=== PATIENT | female | born 1955 | race Caucasian/White ===

== ENCOUNTER → 2018-05-06 | Outpatient (CLI) | payer OTHER ==
--- NOTE | 2018-05-08 17:38 | MR ---
EXAMINATION TYPE: MR shoulder LT wo con DATE OF EXAM: 05/06/2018 COMPARISON: None HISTORY: 62-year-old female Left shoulder pain TECHNIQUE: Multiplanar, multisequence imaging of the left shoulder is performed without contrast. FINDINGS: Long head biceps tendon appears intact but shows moderate tenosynovial fluid along the bicipital groo ve. Heterogeneous signal of the subscapularis tendon with a small articular sided tear. The majority of t he tendon remains intact. Diffuse heterogeneity of both supraspinatus and infraspinatus tendons. Only thin, wispy, redundant appearing fibers of the supraspinatus tendon are identified. Underlying t ear is suspected measuring 2.2 cm AP at least 2.6 cm long to the level of the AC joint. This involves nearly the entire supraspinatus tendon. The remainder of the supraspinatus tendon exten ding into the anterior infraspinatus tendon shows extensive heterogeneity and likely prominent intras ubstance tearing. Small effusion within the subacromial/subdeltoid bursa. No atrophy of the rotator cuff musculature. Mild degenerative joint space narrowing with marginal spurring and capsular hypertrophy at the acromi oclavicular joint. No significant encroachment onto the underlying cuff. There is a moderately large joint effusion and degenerative blunting of the superior labrum. Mild diffuse thinning of superior humeral head articular cartilage. No Hill-Sachs deformity or os acromiale. No suspicious bone marrow replacement. IMPRESSION: 1. Severe diffuse rotator cuff tendinosis. Only thin wispy fibers of the supraspinatus tendon are vis ualized. Suspect a full-thickness to nearly full-thickness tear of the supraspinatus tendon (2.2 cm A P and 2.6 cm long). 2. The more posterior fibers of the supraspinatus tendon extending into the anterior infraspinatus te ndon shows prominent areas of intrasubstance tear at the footprint. Associated cystic bony changes at the greater tuberosity. 3. No rotator cuff muscle atrophy. 4. Moderate joint effusion and moderate long head biceps tenosynovitis.
== END | disposition home or self-care (01) ==
LOC: RADMRIMAIN 10:52
PROVIDERS: ATTEND Orthopaedic Surgery
DX: M65.811 Other synovitis and tenosynovitis, right shoulder (principal); M67.813 Other specified disorders of tendon, right shoulder; R93.7 Abnormal findings on diagnostic imaging of other parts of musculoskeletal system

== ENCOUNTER → 2018-05-23 | Outpatient (CLI) | payer OTHER ==
[2018-05-23 14:56] LABS: Basophils # (A) 0.1 k/uL (0-0.2); Basophils % (A) 1 %; Eosinophils # (A) 0.2 k/uL (0-0.7); Eosinophils % (A) 2 %; HCT 43.8 % (34.0-46.0); HGB 14.1 gm/dL (11.4-16.0); Lymphocytes # (A) 1.3 k/uL (1.0-4.8); Lymphocytes % (A) 20 %; MCH 29.4 pg (25.0-35.0); MCHC 32.1 g/dL (31.0-37.0); MCV 91.6 fL (80.0-100.0); Mean Platelet Volume 7.4; Monocytes # (A) 0.3 k/uL (0-1.0); Monocytes % (A) 5 %; Neutrophils # (A) 4.6 k/uL (1.3-7.7); Neutrophils % (A) 70 %; Platelet Count 201 k/uL (150-450); RBC 4.78 m/uL (3.80-5.40); RDW 13.7 % (11.5-15.5); WBC 6.6 k/uL (3.8-10.6)
[2018-05-23 15:11] LABS: Potassium 4.2 mmol/L (3.5-5.1)
== END | disposition home or self-care (01) ==
LOC: LABPAT 13:29
PROVIDERS: ATTEND Orthopaedic Surgery
DX: Z01.812 Encounter for preprocedural laboratory examination (principal); Z01.818 Encounter for other preprocedural examination; M75.42 Impingement syndrome of left shoulder
CPT/HCPCS: 36415; 80051; 85025; 93005

== ENCOUNTER 2018-06-10 06:11 | Day surgery (SDC) | payer OTHER ==
[2018-06-07 14:57] VITALS: BMI 20.3
--- NOTE | 2018-06-09 09:24 | HP ---
HISTORY AND PHYSICAL CHIEF COMPLAINT: Left shoulder pain. 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 She is having persistent pain with overhead use and at night. She has tried medications and rest without much relief. She notes the pain severely limits her function and activities. PAST MEDICAL HISTORY: Negative. PAST SURGICAL HISTORY: Negative. CURRENT MEDICATIONS: None. She denies drug allergies. FAMILY HISTORY: Significant for stroke. SOCIAL HISTORY: Negative for current tobacco or alcohol use. REVIEW OF SYSTEMS: A 16-point review of systems otherwise reviewed and is noncontributory. PHYSICAL EXAMINATION: On examination, the patient is approximately 5 foot 3, 115 pounds of mesomorphic habitus. HEENT exam is nonfocal. Neck is supple. On examination of her left shoulder, she is tender about the anterior subacromial space. She has moderate subacromial crepitus. Active range of motion forward elevation 145 degrees, external rotation with arm at the side 65 degrees, internal rotation to L1. Motor strength is 4+/5 for external rotation with arm at side, 4/5 for abduction. Impingement test is positive. Speed test is positive. Her distal neurovascular exam otherwise appears to be intact in the left upper extremity. MRI report left shoulder 05/06/2018 shows evidence of a supraspinatus tear along with significant bicipital tendinosis. IMPRESSION: 1. Acute left rotator cuff tear-symptomatic. 2. Left proximal bicipital tendinosis. RECOMMENDATIONS: I talked to the patient at length regarding her condition and treatment options. At this point, she is quite symptomatic after this acute injury. After thorough discussion, she opts to proceed with surgery. We will plan to proceed with arthroscopic evaluation and possible subacromial decompression, arthroscopic rotator cuff repair, and possible biceps tenotomy. Risks and benefits were discussed at length in layman's terms. MMODL / IJN: [id number] /
[~2018-06-10 06:11] MED LIST: DEXAMETHASONE SOD PHOSPHATE 10 MG/ML 1 ML VIAL IV ONE; LACTATED RINGERS 1,000 ML IV SCH; MIDAZOLAM (PF) 2 MG/2 ML VIAL IV PRN; ONDANSETRON 4 MG/2 ML VIAL IVP ONE; SCOPOLAMINE 1.5MG/72HR PATCH TRANSDERM ONE
[2018-06-10] MEDS ORDERED: MIDAZOLAM 2 MG/2 ML VIAL IV ONE (07:11)
[2018-06-10] MEDS ORDERED: fentaNYL (PF) 50 MCG/ML 2 ML AMP IV ONE (07:11)
[2018-06-10] MEDS ORDERED: SUCCINYLCHOLINE CHLORIDE 100 MG/5 ML SYR IV ONE (08:03)
[2018-06-10] MEDS ORDERED: fentaNYL (PF) 50 MCG/ML 2 ML AMP ONE (08:03)
[2018-06-10] MEDS ORDERED: LIDOCAINE 1% INJ 10MG/ML (20 ML MDV) ONE (08:03)
[2018-06-10] MEDS ORDERED: PROPOFOL 10 MG/ML 20 ML VIAL IV ONE (08:03)
[2018-06-10] MEDS ORDERED: ROPIVACAINE 5 MG/ML 30 ML VIAL ONE (08:03)
[2018-06-10] MEDS ORDERED: ceFAZolin 1,000 MG/50 ML BAG (PMX) IVPB ONE (08:05)
[2018-06-10] MEDS ORDERED: EPINEPHrine (PF) 1 ML in SODIUM CHLORIDE 0.9% IRRIGATIO 3,000 ML IRRIGATION ONE ×8 (08:05)
--- NOTE | 2018-06-10 09:21 | P.ONQ ---
Anesthesiology Proc Note - PNB - Peripheral Nerve Block Performed Left Interscalene Single Time Out Performed: Yes Procedure Start Time: 07:10 Procedure Stop Time: :21 Indication: Requested by physician Specifically requested for management of pain by : Alli Morel Sedation Type: Sedate with meaningful contact maintained Preparation: Sterile Prep Position: Supine (PUJANK) Needle Size: 50mm (2") Needle Gauge: 21 Technique: Ultrasound Injectate: 0.5% Ropivacaine (see comment for volume) (15 ml) Blood Aspirated: No Pain Paresthesia on Injection Noted: No Resistance on Injection: Normal Events: Uneventful and Well Tolerated
--- NOTE | 2018-06-10 09:33 | P.OP ---
Date of Procedure: 06/10/18 Preoperative Diagnosis: Symptomatic left rotator cuff tear Postoperative Diagnosis: 1 cm full-thickness rotator cuff tear, high-grade partial-thickness tear intra- articular portion proximal biceps Procedure(s) Performed: Left shoulder arthroscopic subacromial decompression/biceps tenotomy/rotator cuff repair Implants: Arthrex 5.5 mm swivel lock anchor 1 Anesthesia: PAULINE [facility] Surgeon: Alli Morel Estimated Blood Loss (ml): 10 Pathology: none sent Condition: stable Disposition: PACU Indications for Procedure: The patient's a 62-year-old female who presents after injuring her left shoulder previously with persistent pain despite conservative measures. A discussion of the risks and benefits of operative intervention versus continued conservative measures was made with patient. She opted to proceed with surgery. Operative risks to include infection, neurovascular injury, development of blood clots, possible tendon rerupture, possible postoperative stiffness, and possible need for subsequent procedures was discussed. Informed consent was obtained. Operative Findings: As below Description of Procedure: The patient was brought to the operating room, and after induction of general anesthesia was placed in a beachchair position. A preoperative interscalene block was placed for postoperative analgesia. I examined the left shoulder. There was no gross block to passive motion or gross glenohumeral instability. The left upper extremity was prepped and draped in normal fashion. The bony outlines the acromion, distal clavicle, and coracoid process were outlined with a skin marker. The glenohumeral joint was inflated with 50 mL of saline utilizing a spinal needle from posterior approach. A posterior portal was made through a 5 mm skin incision 1 cm medial and inferior to the posterior lateral border time. A blunt trocar was used to easily into the joint. Diagnostic arthroscopy was performed. An anterior portal was made just lateral to the coracoid process entering the joint above the subscapularis tendon. The subscapularis tendon appeared to be intact. Anterior labrum was intact. The inferior recess was inspected. The posterior labrum was intact. There was a high-grade partial-thickness tear of the long head of the biceps involving interarticular portion. Was elected to proceed with release at this point. This was released from the superior labrum with electrocautery and was allowed to retract to the bicipital groove. On inspection the rotator cuff a full- thickness tear involving the anterior aspect the supraspinatus was noted. The posterior portion of the rotator cuff appeared to be intact. A lateral portal was made 2 centimeters inferior to the anterior lateral border of the acromion. The rotator cuff was then mobilized with a traction suture. This was then easily brought back to the greater tuberosity. The soft tissue on the undersurface of the acromion was debrided with a motorized shaver and electrocautery clearly defining the anterior medial and lateral borders as well as the distal clavicle. An anterior inferior acromioplasty was performed with a motorized ankit starting anterolateral, then extending this posteriorly, then extending this medially. I converted to a flat acromion and this was verified in the posterior and lateral viewing portals. Attention was then paid towards the rotator cuff. A 1 cm minimally retracted tear involving the anterior aspect the supraspinatus was noted. This is easily mobilized. A #2 fiber tape was passed with a scorpion suture passer. This was secured laterally with a 5.5 mm swivel lock anchor. Good purchase was obtained. Final arthroscopic view showed adequate compression at the footprint. The arthroscope was then removed. The portals were closed with simple 3-0 nylon sutures. A sterile dressing was applied in addition to a sling. The patient was then awoken from general anesthesia and transferred to recovery room in good condition. Blood loss was estimated at 10 mL. No complications were incurred. Sponge and needle counts were correct in the case.
[2018-06-10] MEDS: HYDROmorphone 0.5 MG/0.5 ML SYRINGE IVP PRN ×2 (09:50→09:56)
[2018-06-10] MEDS ORDERED: KETOROLAC 30 MG/ML 1 ML VIAL IVP ONE (09:56)
[2018-06-10 09:57] VITALS: TEMP 97
[2018-06-10 10:39] VITALS: RESP 16
[2018-06-10] MEDS ORDERED: LACTATED RINGERS 1,000 ML IV ONE (10:42)
[2018-06-10] MEDS ORDERED: ONDANSETRON 4 MG/2 ML VIAL IVP ONE (12:03)
[2018-06-10 12:35] VITALS: BP 122/79; PULSE 78
== END 2018-06-10 13:04 | disposition home or self-care (01) ==
LOC: OR 06:11
PROVIDERS: ATTEND Orthopaedic Surgery
DX: S46.012A Strain of muscle(s) and tendon(s) of the rotator cuff of left shoulder, initial encounter (principal); S46.112A Strain of muscle, fascia and tendon of long head of biceps, left arm, initial encounter; X58.XXXA Exposure to other specified factors, initial encounter; R42 Dizziness and giddiness; G43.909 Migraine, unspecified, not intractable, without status migrainosus; Z79.899 Other long term (current) drug therapy
CPT/HCPCS: 64415; 29827; 29826; C1713; C1894; J2250; J1100; J2405; J0171; J2001; J3010; J1885; J0690; J2795; J0330; J2704; J1170

== ENCOUNTER 2018-12-15 15:35 | Inpatient (IN) | payer OTHER ==
[2018-12-15] MEDS ORDERED: MORPHINE SULFATE 2 MG/ML SYRINGE IVP STA (15:51)
[2018-12-15] MEDS ORDERED: RX INFO: IV CONTRAST WAS GIVEN 1 EACH MISC MISCELLANE PRN (15:51)
[2018-12-15] MEDS ORDERED: MORPHINE SULFATE 4 MG/ML SYRINGE IVP STA (16:06)
--- NOTE | 2018-12-15 16:11 | ED ---
Fall HPI - General Chief Complaint: Fall Stated Complaint: fall, lt knee injury Time Seen by Provider: 12/15/18 15:44 Source: patient Mode of arrival: wheelchair - History of Present Illness Initial Comments: 63yo female presenting today for chief complaint of left knee pain. Patient states she slipped on a dog toy, causing her to fall on her anterior left knee. Patient states that she saw small indentation. And then was unable to range at the knee. Patient states that there is severe pain anteriorly denies posterior pain denies numbness tingling loss sensation. Patient denies any head injury or injury to the neck or back. Patient denies any injury of the upper extremities. Patient was considered a fracture presents emergency department for further evaluation. Remaining ROS (-). Patient unable to ambulate on arrival with left knee. - Related Data Home Medications Medication Instructions Recorded Confirmed No Known Home Medications 12/15/18 12/15/18 Allergies Allergy/AdvReac Type Severity Reaction Status Date / Time No Known Allergies Allergy Verified 12/15/18 17:45 Review of Systems ROS Statement: Those systems with pertinent positive or pertinent negative responses have been documented in the HPI. ROS Other: All systems not noted in ROS Statement are negative. Past Medical History Past Medical History: No Reported History Additional Past Medical History / Comment(s): SEASONAL ALLERGIES, MIGRAINES, MENIERE'S DISEASE, History of Any Multi-Drug Resistant Organisms: None Reported Past Surgical History: Appendectomy, Section Additional Past Surgical History / Comment(s): COLONOSCOPY Past Anesthesia/Blood Transfusion Reactions: Motion Sickness, Postoperative Nausea & Vomiting (PONV) Past Psychological History: No Psychological Hx Reported Smoking Status: Never smoker Past Alcohol Use History: None Reported Past Drug Use History: None Reported - Past Family History Father Additional Family Medical History / Comment(s): AT AGE 91 FROM OLD AGE Mother Family Medical History: Congestive Heart Failure (CHF) Additional Family Medical History / Comment(s): AT AGE 77 General Exam - General Exam Comments Initial Comments: General: The patient is awake and alert, in no distress, and does not appear acutely ill. Eye: +3 mm pupils are equal, round and reactive to light, extra-ocular movements are intact. No nystagmus. There is normal conjunctiva bilaterally. No signs of icterus. Ears, nose, mouth and throat: There are moist mucous membranes and no oral lesions. No raccoon or alva sign Neck: The neck is supple, there is no tenderness or JVD. No midlines tenderness to palpation of the C-spine. Cardiovascular: There is a regular rate and rhythm. No murmur, rub or gallop is appreciated. Respiratory: Lungs are clear to auscultation, respirations are non-labored, breath sounds are equal. No wheezes, stridor, rales, or rhonchi. Musculoskeletal: Upon inspection of the knees bilaterally there is significant mild anterior soft tissue swelling with palpable defect of the quadriceps and patellar tendons. Patient is not able to extend at the knee. Refuses to range at the left knee. Strength 5/5 at the ankles b/l, no foot drop evident. Sensation intact proximal distal to injury site. DP pulses equal bilaterally 2+. Brachial, BP LA 119/68, Ankle BP LL 169/87 ROGER 1.42, Brachial BP RA 109/59, Ankle BP RL 139/87 ROGER 1.21. Neurological: A&O x 3. CN II-XII intact, There are no obvious motor or sensory deficits. Coordination appears grossly intact. Speech is normal. Skin: Skin is warm and dry and no rashes or lesions are noted. Psychiatric: Cooperative, appropriate mood & affect, normal judgment. Limitations: physical limitation Course Vital Signs 12/15/18 15:48 Temperature 97.9 F Pulse Rate 85 Respiratory 18 Rate Blood Pressure 138/66 O2 Sat by Pulse 100 Oximetry Medical Decision Making - Medical Decision Making 63-year-old female presented for chief complaint of left anterior knee pain. Patient is unsure if she dislocated it. She states there is a defect over the anterior knee. Patient denies any loss of sensation. Patient neurovascularly intact. Normal equal +2 DP b/l. ROGER WNL b/l. imaging studies revealed a comminuted left patella. Contacted chemical production machine operator orthopedic surgeon speaking with physician patient care assistant Fidel posada who recommended admission was surgical intervention scheduled for tomorrow. Patient is agreeable to admission. Pain controlled in ER. Repeat neurovascular exam upon transfer to floor within normal limits. Patient was evaluated by attending . Repeat NV exam upon transfer to floor WNL. Patient agreeable with plan and admission. - Lab Data Result diagrams: 12/15/18 16:12 12/15/18 16:12 Lab Results 12/15/18 12/15/18 Range/Units 16:12 16:12 WBC 6.3 (3.8-10.6) k/uL RBC 4.38 (3.80-5.40) m/uL Hgb 13.1 (11.4-16.0) gm/dL Hct 39.9 (34.0-46.0) % MCV 91.0 (80.0-100.0) fL MCH 29.8 (25.0-35.0) pg MCHC 32.8 (31.0-37.0) g/dL RDW 15.2 (11.5-15.5) % Plt Count 193 (150-450) k/uL Neutrophils % 71 % Lymphocytes % 17 % Monocytes % 4 % Eosinophils % 5 % Basophils % 1 % Neutrophils # 4.5 (1.3-7.7) k/uL Lymphocytes # 1.1 (1.0-4.8) k/uL Monocytes # 0.3 (0-1.0) k/uL Eosinophils # 0.3 (0-0.7) k/uL Basophils # 0.1 (0-0.2) k/uL Sodium 140 (137-145) mmol/L Potassium 3.9 (3.5-5.1) mmol/L Chloride 105 (98-107) mmol/L Carbon Dioxide 28 (22-30) mmol/L Anion Gap 7 mmol/L BUN 16 (7-17) mg/dL Creatinine 0.69 (0.52-1.04) mg/dL Est GFR (CKD-EPI)AfAm >90 (>60 ml/min/1.73 sqM) Est GFR (CKD-EPI)NonAf >90 (>60 ml/min/1.73 sqM) Glucose 92 (74-99) mg/dL Calcium 9.5 (8.4-10.2) mg/dL Disposition Clinical Impression: Comminuted fracture of left patella, Left knee pain, Fall Disposition: ADMITTED IP TO THIS [facility] Condition: Stable Is patient prescribed a controlled substance at d/c from ED?: No Time of Disposition: 17:19 Decision to Admit Reason: Admit from EC Decision Date: 12/15/18 Decision Time: 17:19
[2018-12-15 16:21] LABS: Basophils # (A) 0.1 k/uL (0-0.2); Basophils % (A) 1 %; Eosinophils # (A) 0.3 k/uL (0-0.7); Eosinophils % (A) 5 %; HCT 39.9 % (34.0-46.0); HGB 13.1 gm/dL (11.4-16.0); Lymphocytes # (A) 1.1 k/uL (1.0-4.8); Lymphocytes % (A) 17 %; MCH 29.8 pg (25.0-35.0); MCHC 32.8 g/dL (31.0-37.0); Monocytes # (A) 0.3 k/uL (0-1.0); Monocytes % (A) 4 %; Neutrophils # (A) 4.5 k/uL (1.3-7.7); Neutrophils % (A) 71 %; Platelet Count 193 k/uL (150-450); RBC 4.38 m/uL (3.80-5.40); RDW 15.2 % (11.5-15.5); WBC 6.3 k/uL (3.8-10.6)
--- NOTE | 2018-12-15 16:25 | XR ---
EXAMINATION TYPE: XR knee complete LT DATE OF EXAM: 12/15/2018 COMPARISON: NONE HISTORY: Left knee deformity after fall. TECHNIQUE: Lateral, frontal and oblique views of the left knee were obtained. FINDINGS: There is a complete fracture through the mid patella with retraction of the proximal patell ar fragment superiorly by approximately 5.0 cm. Comminuted components are seen surrounding the fractu re sites. Soft tissue swelling is seen anterior and medial to the left knee. No additional fracture o r dislocation is seen. IMPRESSION: Patellar fracture with displacement as described above.
[2018-12-15 16:29] LABS: African American GFR (CKD) >90 (>60 ml/min/1.73 sqM); Anion Gap 7 mmol/L; Blood Urea Nitrogen 16 mg/dL (7-17); Calcium 9.5 mg/dL (8.4-10.2); Carbon Dioxide 28 mmol/L (22-30); Chloride 105 mmol/L (98-107); Glucose 92 mg/dL (74-99); Non-African American GFR(CKD) >90 (>60 ml/min/1.73 sqM); Potassium 3.9 mmol/L (3.5-5.1); Sodium 140 mmol/L (137-145)
[2018-12-15] MEDS ORDERED: ONDANSETRON 4 MG/2 ML VIAL IVP PRN (17:11)
[2018-12-15] MEDS ORDERED: NALOXONE 0.4 MG/ML 1 ML VIAL IV PRN (17:11)
--- NOTE | 2018-12-15 17:44 | XR ---
EXAMINATION TYPE: XR knee limited LT DATE OF EXAM: 12/15/2018 COMPARISON: NONE HISTORY: Knee pain after falling TECHNIQUE: 2 views FINDINGS: There is a transverse fracture through the body of the patella. There is separation of the fragments 2 cm. There is no dislocation. Joint spaces are normal. IMPRESSION: Displaced patella fracture.
[2018-12-15] MEDS: SODIUM CHLORIDE 0.9% 1,000 ML IV SCH (20:38)
[2018-12-15] MEDS: MORPHINE SULFATE 4 MG/ML SYRINGE IV PRN (20:46)
[2018-12-16] MEDS: MORPHINE SULFATE 4 MG/ML SYRINGE IV PRN (05:55)
--- NOTE | 2018-12-16 07:48 | P.HPOR ---
History of Present Illness H&P Date: 12/16/18 Chief Complaint: Left knee patella fracture Patient is a 63-year-old female who presented to [facility] yesterday evening after sustaining a fall. Patient was in a dog kennel at her home, she tripped over a toy and fell directly onto her left knee. She had immediate pain and was unable to weight-bear. Upon arrival to the hospital, imaging and lab tests were done. Images demonstrated a displaced comminuted left patellar fracture. I was contacted by the emergency room staff regarding the patient, she was admitted under orthopedic care with plan for surgical intervention. Patient was evaluated today on the surgical floor, she is resting comfortably, she has family at bedside. The knee is fully extended at this time. She notes most discomfort when she attempts to move it. She denies any previous surgery involving the left knee. She has a previous left shoulder arthroscopy that was done with Dr. Morel in June 2018, she has no complaints with that at this time. Denies any chest pain, shortness of breath, fevers or chills, abdominal d iscomfort. Review of Systems Constitutional: Reports as per HPI Past Medical History Past Medical History: No Reported History Additional Past Medical History / Comment(s): SEASONAL ALLERGIES, MIGRAINES, MENIERE'S DISEASE, History of Any Multi-Drug Resistant Organisms: None Reported Past Surgical History: Appendectomy, Section Additional Past Surgical History / Comment(s): COLONOSCOPY Past Anesthesia/Blood Transfusion Reactions: Motion Sickness, Postoperative Nausea & Vomiting (PONV) Past Psychological History: No Psychological Hx Reported Smoking Status: Never smoker Past Alcohol Use History: None Reported Past Drug Use History: None Reported - Past Family History Father Additional Family Medical History / Comment(s): AT AGE 91 FROM OLD AGE Mother Family Medical History: Congestive Heart Failure (CHF) Additional Family Medical History / Comment(s): AT AGE 77 Medications and Allergies Home Medications Medication Instructions Recorded Confirmed Type No Known Home Medications 12/15/18 12/15/18 History Allergies Allergy/AdvReac Type Severity Reaction Status Date / Time No Known Allergies Allergy Verified 12/15/18 17:45 Physical Examination Left lower extremity: Obvious effusion present over the left knee, no areas of erythema or open lesions Patient's knee is extended at this time, she is unable to extend or flex Her sensory exam to light touch throughout the extremity is intact, dorsalis pedis pulse and posterior tibialis pulses 2+ Calf is soft, no tenderness with palpation Plantar flexion, dorsiflexion, EHL, FHL are intact Results - Labs Labs: H & H 12/15/18 Range/Units 16:12 Hgb 13.1 (11.4-16.0) gm/dL Hct 39.9 (34.0-46.0) % Result Diagrams: 12/15/18 16:12 12/15/18 16:12 - Diagnostic results Knee x-ray: report reviewed, image reviewed Assessment and Plan Plan: Imaging: Images of the left knee were obtained, they demonstrated a displaced and comminuted left patella fracture Assessment: 1. Displaced comminuted left patella fracture 2. Status post fall from standing Plan: I was able to discuss the case, including with physical exam findings and imaging studies with my attending physician Dr. Morel. Would like to proceed with a open reduction internal fixation procedure later this afternoon. Patient was made nothing by mouth last night. Risks and benefits of the procedure were discussed, along with procedure and recovery aspect. She has a good understanding would like to proceed. Obtain consent Nonweightbearing left lower extremity Pain control Nothing by mouth Plan for surgical intervention 12/16/2018 Further recommendations to follow Time with Patient: Less than 30
[2018-12-16] MEDS: SODIUM CHLORIDE 0.9% 1,000 ML IV SCH (09:45)
[2018-12-16] MEDS ORDERED: IV FLUID CONTINUATION 1,000 ML IV ONE (15:22)
[2018-12-16] MEDS ORDERED: MIDAZOLAM PF (FBP) 2 MG/2 ML VIAL IV ONE (15:46)
[2018-12-16] MEDS ORDERED: fentaNYL (PF) 50 MCG/ML 2 ML AMP IV ONE (15:46)
--- NOTE | 2018-12-16 15:59 | P.ANPRN ---
Procedure Note - Anesthesia - Nerve Block Performed Left Adductor Canal Single Time Out Performed: Yes Date of Procedure: 12/16/18 Procedure Start Time: 15:45 Procedure Stop Time: 15:56 Location of Patient Procedure: PreOp Indication: Requested by physician Specifically requested for management of pain by DrTwin: Alli Morel Sedation Type: Sedate with meaningful contact maintained Preparation: Sterile Prep Position: Supine Needle Types: Pajunk Needle Gauge: 21 Technique: Ultrasound Injectate: 0.5% Ropivacaine (see comment for volume) (20 ml plus Decadrone 4 mg) Blood Aspirated: No Pain Paresthesia on Injection Noted: No Resistance on Injection: Normal Events: Uneventful and Well Tolerated
[2018-12-16] MEDS ORDERED: DEXAMETHASONE SOD PHOSPHATE 4 MG/ML 1 ML VIAL ONE (16:39)
[2018-12-16] MEDS ORDERED: PROPOFOL 10 MG/ML 20 ML VIAL IV ONE (16:39)
[2018-12-16] MEDS ORDERED: ONDANSETRON 4 MG/2 ML VIAL ONE (16:39)
[2018-12-16] MEDS ORDERED: MIDAZOLAM 2 MG/2 ML VIAL ONE (16:39)
[2018-12-16] MEDS ORDERED: ROPIVACAINE 5 MG/ML 30 ML VIAL ONE (16:39)
[2018-12-16] MEDS ORDERED: DEXAMETHASONE SOD PHOS (MDV) 100 MG/10 ML VIAL ONE (16:39)
[2018-12-16] MEDS ORDERED: fentaNYL (PF) 50 MCG/ML 2 ML AMP ONE (16:39)
[2018-12-16] MEDS ORDERED: ePHEDrine SULFATE/0.9% NACL/PF 50 MG/5 ML SYRINGE IV ONE (16:39)
[2018-12-16] MEDS ORDERED: LACTATED RINGERS 1,000 ML IV ONE (16:43)
[2018-12-16] MEDS ORDERED: ceFAZolin 1,000 MG in SODIUM CHLORIDE 0.9% 1,000 ML IRRIGATION ONE (17:14)
[2018-12-16] MEDS ORDERED: HYDROmorphone 0.5 MG/0.5 ML SYRINGE IVP PRN (18:09)
[2018-12-16] MEDS ORDERED: HYDROmorphone 1 MG/ML 1 ML SYRINGE IVP PRN (18:09)
[2018-12-16] MEDS ORDERED: traMADol 50 MG TAB PO PRN (18:09)
[2018-12-16] MEDS ORDERED: ACETAMINOPHEN TAB 325 MG TAB PO PRN (18:09)
[2018-12-16] MEDS ORDERED: HYDROcodone/APAP 5-325MG 1 EACH TAB PO PRN (18:09)
[2018-12-16] MEDS ORDERED: ONDANSETRON 4 MG/2 ML VIAL IVP PRN (18:09)
--- NOTE | 2018-12-16 18:16 | P.OP ---
Date of Procedure: 12/16/18 Preoperative Diagnosis: Displaced left transverse patella fracture Postoperative Diagnosis: Same Procedure(s) Performed: Open reduction and internal fixation left patella fracture Implants: Synthes 4.5 mm x 44 mm partially threaded cancellus screws 2 Anesthesia: spinal Surgeon: Alli Morel Assistant Food Service Manager #1: Joss Norris Estimated Blood Loss (ml): 20 Pathology: none sent Condition: stable Disposition: PACU Indications for Procedure: The patient is a 63-year-old female presents after falling injuring her left knee yesterday. On evaluation she was noted to have a closed transverse displaced patella fracture. A discussion of the risks and benefits of operative intervention was made with patient. She opted to proceed with surgery. Operative risks to include infection, neurovascular injury, development of blood clots, possible development of nonunion/malunion, and possible need for subsequent procedures was discussed. Informed consent was obtained. Operative Findings: As below Description of Procedure: The patient was brought to the operating room, and after induction of spinal anesthesia the left lower extremity was prepped and draped in normal fashion. The tourniquet was inflated to 270 mmHg. A longitudinal incision extending approximately 10 cm was then made over the patella. Skin and subcutaneous tissues were divided sharply. A large hematoma was encountered. The fracture fragments were then identified. The hematoma was removed. The periosteum was elevated. The inferior fragment had minimal articular cartilage. The fracture was provisionally reduced with a [id number] reduction clamp. 2 guidewires were then inserted from inferior to superior. This is verified with fluoroscopy. I was able to obtain adequate reduction of fracture. A cannulated drill was used over the guidewires. 2 screws measuring 4.5 mm x 44 mm partially threaded were then inserted. 18-gauge wire was passed through the screws and a tension band was created. The wire was appropriately tightened. The medial and lateral retinaculum tears were repaired with interrupted 0 Vicryl suture. The subcutaneous tissues were reapproximated interrupted 2-0 Vicryl sutures. The skin was reprepped with 3-0 subcuticular Prolene suture. Steri-Strips were applied. A sterile dressing was applied in addition to a knee immobilizer. The tourniquet was deflated less than 1 hour total tourniquet time. The patient was awoken from sedation and transferred to recovery room in good condition. Blood loss estimated 20 mL. No complications were incurred. Sponge and needle counts were correct in the case.
[2018-12-16] MEDS: SENNOSIDES-DOCUSATE SODIUM 1 EACH TAB PO SCH (21:36)
[2018-12-17] MEDS: HYDROcodone/APAP 5-325MG 1 EACH TAB PO PRN ×3 (06:27→22:57)
[2018-12-17] MEDS: ENOXAPARIN 40 MG/0.4 ML SYRINGE SQ SCH (08:31)
--- NOTE | 2018-12-17 09:47 | P.PN ---
Subjective Progress Note Date: 12/17/18 Principal diagnosis: Status post ORIF left patella fracture Patient evaluated at bedside today, she is resting comfortably in her hospital chair. She is utilizing a knee immobilizer. She is alert he been up and ambulated. She denies any chest pain or shortness of breath Objective - Vital Signs Vital signs: Vital Signs Temp 98.2 F 12/17/18 07:00 Pulse 74 12/17/18 07:00 Resp 15 12/17/18 07:00 BP 110/59 12/17/18 07:00 Pulse Ox 97 12/17/18 07:00 Intake & Output 12/16/18 12/17/18 12/17/18 18:59 06:59 18:59 Intake Total 801 110 Output Total 20 Balance 781 110 Intake: IV 801 Oral 110 Output: Estimated Blood Loss 20 Other: Voiding Method Bedpan # Voids 1 - Exam Left lower extremity: Initial postop bandage had been removed, exam of the incision showed good Steri- Strip position. No drainage. Minimal soft tissue swelling or ecchymosis. Calf is soft, no tenderness with palpation. Plantar flexion, dorsiflexion, EHL, FHL are intact. Sensory exam to light touch is intact throughout the extremity, dorsal pedis pulses 2+ - Labs CBC & Chem 7: 12/15/18 16:12 12/15/18 16:12 Assessment and Plan Plan: Assessment: Post op day #1 status post ORIF left patella fracture Plan: Pain control, continue oral medication as needed GI and DVT prophylaxis, subcu medication while inpatient, plan for discharge on aspirin 325 mg daily Wound care instructions discussed, icing and elevating techniques discussed Encourage incentive spirometer Toe-touch weightbearing while in brace and utilizing walker Discharge planning: Plan for discharge home tomorrow Time with Patient: Less than 30
--- NOTE | 2018-12-17 09:52 | XR ---
Fluoroscopy History: ORIF LEFT PATELLA 6 seconds of fluoroscopic time and 2 films are submitted for ORIF LEFT PATELLA .
[2018-12-17] MEDS: MORPHINE SULFATE 4 MG/ML SYRINGE IV PRN ×2 (10:02→18:26)
[2018-12-17] MEDS: SODIUM CHLORIDE 0.9% 1,000 ML IV SCH (10:41)
[2018-12-17] MEDS: MAGNESIUM HYDROXIDE 2,400 MG/10 ML CUP PO PRN (13:32)
[2018-12-17] MEDS: SENNOSIDES-DOCUSATE SODIUM 1 EACH TAB PO SCH (20:34)
[2018-12-18] MEDS: SODIUM CHLORIDE 0.9% 1,000 ML IV SCH ×2 (05:48→06:09)
[2018-12-18] MEDS: HYDROcodone/APAP 5-325MG 1 EACH TAB PO PRN ×3 (06:09→19:35)
--- NOTE | 2018-12-18 09:30 | P.PN ---
Subjective Progress Note Date: 12/18/18 Principal diagnosis: Status post ORIF left patella fracture The patient notes moderate pain in her left knee. She hasn't ambulated much yet. Objective - Vital Signs Vital signs: Vital Signs Temp 98.1 F 12/18/18 02:05 Pulse 71 12/18/18 04:00 Resp 16 12/18/18 04:00 BP 109/69 12/18/18 02:05 Pulse Ox 95 12/18/18 02:05 Intake & Output 12/17/18 12/18/18 12/18/18 18:59 06:59 18:59 Intake Total 600 Output Total 300 Balance 300 Intake: Oral 600 Output: Urine 300 Other: Voiding Method Bedpan # Voids 1 1 - Exam Left knee incision clean, dry, intact. Negative Diane's left lower extremity. Neurovascular exam intact left lower extremity. - Labs CBC & Chem 7: 12/15/18 16:12 12/15/18 16:12 Assessment and Plan Assessment: Status post ORIF left patella fracture Plan: Continue with therapy. Pain control. Potential discharge home today or tomorrow depending on activity level. Time with Patient: Less than 30
[2018-12-18] MEDS: MORPHINE SULFATE 4 MG/ML SYRINGE IV PRN (09:49)
[2018-12-18] MEDS: ENOXAPARIN 40 MG/0.4 ML SYRINGE SQ SCH (09:49)
[2018-12-18] MEDS: MAGNESIUM HYDROXIDE 2,400 MG/10 ML CUP PO PRN (13:50)
[2018-12-18] MEDS: SENNOSIDES-DOCUSATE SODIUM 1 EACH TAB PO SCH (20:58)
[2018-12-19] MEDS: HYDROcodone/APAP 5-325MG 1 EACH TAB PO PRN ×4 (01:47→17:50)
[2018-12-19] MEDS: SODIUM CHLORIDE 0.9% 1,000 ML IV SCH (01:50)
[2018-12-19 07:11] VITALS: BP 126/55; PULSE 77; RESP 15; TEMP 98.1
[2018-12-19] MEDS: ENOXAPARIN 40 MG/0.4 ML SYRINGE SQ SCH (07:42)
[2018-12-19] MEDS: MAGNESIUM HYDROXIDE 2,400 MG/10 ML CUP PO PRN (07:48)
--- NOTE | 2018-12-19 12:27 | P.PN ---
Subjective Progress Note Date: 12/19/18 Principal diagnosis: Status post ORIF left patella fracture Patient evaluated at bedside today, she is resting comfortably in her hospital chair. She is utilizing a knee immobilizer. She is alert he been up and ambulated. She denies any chest pain or shortness of breath Objective - Vital Signs Vital signs: Vital Signs Temp 98.1 F 12/19/18 07:00 Pulse 77 12/19/18 07:00 Resp 15 12/19/18 07:00 BP 126/55 12/19/18 07:00 Pulse Ox 96 12/19/18 07:00 Intake & Output 12/18/18 12/19/18 12/19/18 18:59 06:59 18:59 Intake Total 120 200 Balance 120 200 Intake: Oral 120 200 Other: Voiding Method Bedpan # Voids 2 1 - Exam Left lower extremity: Incision is clean, dry and intact Steri-Strip position. No drainage. Minimal soft tissue swelling or ecchymosis. Calf is soft, no tenderness with palpation. Plantar flexion, dorsiflexion, EHL, FHL are intact. Sensory exam to light touch is intact throughout the extremity, dorsal pedis pulses 2+ - Labs CBC & Chem 7: 12/15/18 16:12 12/15/18 16:12 Assessment and Plan Plan: Assessment: Post op day #3 status post ORIF left patella fracture Plan: Pain control, plan for discharge on oral pain medication GI and DVT prophylaxis, aspirin 325 mg daily Wound care instructions discussed, icing and elevating techniques discussed Encourage incentive spirometer Toe-touch weightbearing while in brace and utilizing walker Discharge planning: discharge home today Time with Patient: Less than 30
--- NOTE | 2018-12-19 12:29 | P.DS ---
Providers Date of admission: 12/15/18 17:11 Expected date of discharge: 12/19/18 Attending physician: Fab Goff Primary care physician: Kaylen Lomas [facility] Course: Date of admission: 12/15/2018 Date of discharge: 12/19/2018 Admission diagnosis: Displaced left transverse patella fracture Discharge diagnosis: Status post ORIF left patella fracture Attending physician: Dr. Morel Surgical procedures: ORIF left patella fracture Brief history: Patient is a 63-year-old female who presented to [facility] on 12/15/2018 after sustaining a fall at home. It was determined after imaging studies she had a displaced left transverse patella fracture. She was admitted to the hospital under our orthopedic care with plan for likely surgical intervention. Surgery was scheduled for 12/16/2018. Hospital course: Details of patient's surgery can be found in operative report. Patient tolerated the procedure well and was subsequently transported to orthopedic floor. Patient's orthopeidc and medical care was provided daily. Patient had daily laboratory tests performed for evaluation of overall blood counts. Patient had daily physical therapy to include strengthening range of motion as well as education with walker ambulation. Patient was treated with Lovenox for their postoperative DVT prophylaxis during their inpatient stay. Patient was noted to have a relatively uneventful postoperative course. Patient reported satisfactory pain control with oral pain medications by postoperative day 0. Patient showed satisfactory progress with physical therapy. Patient moved steadily through the program and had no difficulty meeting the goals by postoperative day 3. Given patient's otherwise satisfactory course and having met physical therapy goals, plan is to discharge patient home on postoperative day 3. Discharge condition/disposition: Patient will be discharged home in stable condition. Discharge medications: Instructions are given on resumption of patient's normal daily medications per primary care recommendation, in addition patient will be prescribed [place] 5 mg/325 mg, aspirin 325 mg, Colace 100 mg. Discharge instructions: 1. Wound care and infection precautions, keep incision dry and covered while showering, no lotions, creams, moisturizers. No soaking, tubs, pools, hottubs. Do not scrub over the incision. 2. Toe-touch weightbearing, utilizing the immobilizer at all times and walker 3. Ice and elevate when necessary. Do not exceed 20 minutes per hour with ice pack. 4. Utilize compression sleeve until seen at first follow up appointment. 5. Pain meds and anticoagulants per prescription. 6. Pain medication has potential to cause constipation. Increase oral fluid and fiber intake. Contact primary care provider if you have not had a bowel movement within 48 hours after discharge 7. No anti-inflammatory medication until discussed at first post operative visit, this including Motrin, Aleve, Mobic, Diclofenac 8. Follow up in office at 2 weeks postop with Fidel Norris PA-C 9. Follow up with your primary care doctor 7-10 days after discharge. 10. Contact [facility] with any questions, . Procedures: Open reduction internal fixation left patella fracture Patient Condition at Discharge: Good Plan - Discharge Summary Discharge Rx Participant: Yes New Discharge Prescriptions: New Aspirin 325 mg PO DAILY #30 tab Docusate [Colace] 100 mg PO DAILY #30 capsule Hydrocodone/Acetaminophen [[place] 5-325] 1 - 2 each PO Q6HR PRN #30 tab PRN Reason: Pain Discharge Medication List Aspirin 325 mg PO DAILY #30 tab 12/19/18 [Rx] Docusate [Colace] 100 mg PO DAILY #30 capsule 12/19/18 [Rx] Hydrocodone/Acetaminophen [[place] 5-325] 1 - 2 each PO Q6HR PRN #30 tab 12/19/18 [Rx] Follow up Appointment(s)/Referral(s): Joss Norris PAC [PHYSICIAN [employer]ING [employer]MIST] - 12/30/18 11:00 am Kaylen Lomas MD [Primary Care Provider] - 12/26/18 12:00 pm Activity/Diet/Wound Care/Special Instructions: Orthopedic discharge instructions: 1. Toe-touch weightbearing with walker, must utilize knee immobilizer at all times 2. Okay to remove knee immobilizer with the leg fully extended and resting on couch/bed 3. Ice and elevate often 4. Aspirin 325 mg daily for DVT prophylaxis 5. Pain medication as needed, over the counter Tylenol or Motrin are okay 6. Plan for follow-up at [facility] in 2 weeks Discharge Disposition: HOME SELF-CARE
== END 2018-12-19 18:27 | disposition home or self-care (01) | DRG 517 ==
LOC: EC 15:35 → 4SSUR 17:11 → OBSVTOIN 12-18 13:51
PROVIDERS: ADMIT Orthopaedic Surgery; ATTEND Orthopaedic Surgery
PROC: 0QSF04Z Reposition Left Patella with Internal Fixation Device, Open Approach (ICD-10-PCS; principal; 2018-12-16 12:20)
DX: S82.032A Displaced transverse fracture of left patella, initial encounter for closed fracture (principal); H81.09 Meniere's disease, unspecified ear; G43.909 Migraine, unspecified, not intractable, without status migrainosus; J30.2 Other seasonal allergic rhinitis; W18.09XA Striking against other object with subsequent fall, initial encounter; Z90.49 Acquired absence of other specified parts of digestive tract; Z98.891 History of uterine scar from previous surgery; Z98.890 Other specified postprocedural states; Z82.49 Family history of ischemic heart disease and other diseases of the circulatory system; Y92.009 Unspecified place in unspecified non-institutional (private) residence as the place of occurrence of the external cause
CPT/HCPCS: 36415; 64447; 80048; 85025; 96374; 99284

== ENCOUNTER → 2023-05-25 | Outpatient (CLI) | payer MEDICARE ==
--- NOTE | 2023-05-25 15:35 | BD ---
EXAMINATION TYPE: Axial Bone Density DATE OF EXAM: 05/25/2023 CLINICAL HISTORY: 67 years old Female. ICD-10 CODE: N95.8 OTHER SPECIFIED MENOPAUSAL AND PERIMENOPAU PERI Height: 62.25 Weight: 124 FRAX RISK QUESTIONS: Family History (Parent hip fracture): no History of Fracture in Adulthood: yes , lt knee Secondary Osteoporosis: no RISK FACTORS HISTORY OF: Surgery to Spine/Hip(right/left)/Wrist (right/left): no EXAM MEASUREMENTS: Bone mineral densitometry was performed using the ScaleOut Software System. Bone mineral density as measured about the Lumbar spine is: ----- L1-L4(G/cm2): 1.238 T Score Values are as follows: ----- L1: -1.5 ----- L2: 0.3 ----- L3: 2.0 ----- L4: 0.8 ----- L1-L4: 0.5 Z Score Values are as follows: ----- L1: 0.4 ----- L2: 2.3 ----- L3: 4.0 ----- L4: 2.8 ----- L1-L4: 2.4 Bone mineral density baseline Bone mineral density about the R hip (g/cm2): 0.937 Bone mineral density about the L hip (g/cm2): 0.867 T Score values are as follows: -----R Neck: -1.5 -----L Neck: -2.2 -----R Total: -0.6 -----L Total: -1.1 Z Score values are as follows: -----R Neck: 0.3 -----L Neck: -0.4 -----R Total: 1.0 -----L Total: 0.4 Bone mineral density baseline FRAX%s: The graph provided illustrates a 11.7% chance for a major osteoporotic fx and a 2.3% chance f or the hips probability for fx in 10 years time. IMPRESSION: Osteopenia (T Score between -2.5 and -1). There is slightly increased risk of fracture and the patient may be considered for treatment. Re-Screen 2-5 years. NOTE: T-SCORE=SD OF THE YOUNG ADULT MEAN.
--- NOTE | 2023-05-26 20:37 | MM ---
Reason for Exam: Screening (asymptomatic). Last mammogram was performed 6 year(s) and 5 month(s) ago. Patient History: Menarche at age 13. First Full-Term at age 30. Late child-bearing (after 30). Hysterectomy at age 48. Patient has history of breast feeding. Patient used Hormonal Contraceptives for 1 year. Risk Values: Denae 5 year model risk: 2.3%. NCI Lifetime model risk: 7.9%. Prior Study Comparison: No prior studies available for comparison. Tissue Density: The breast tissue is heterogeneously dense. This may lower the sensitivity of mammography. Findings: Analyzed By CAD. Asymmetric densities in the left breast for which further evaluation is recommended. No other discrete abnormality is seen. Overall Assessment: Incomplete: need additional imaging evaluation, BI-RAD 0 Management: Special View Mammogram of the left breast. Diagnostic Breast Ultrasound of the left breast. . [facility] will attempt to contact patient to return for supplemental views and ultrasound if indicated. Electronically signed and approved by: Haroldo Amador M.D. Radiologist
== END | disposition home or self-care (01) ==
LOC: RADBDWWP 14:29
PROVIDERS: ATTEND Internal Medicine
DX: Z12.31 Encounter for screening mammogram for malignant neoplasm of breast (principal); M85.89 Other specified disorders of bone density and structure, multiple sites; N95.8 Other specified menopausal and perimenopausal disorders
CPT/HCPCS: 77063; 77067; 77080

== ENCOUNTER → 2023-05-31 | Outpatient (CLI) | payer MEDICARE ==
--- NOTE | 2023-05-31 13:31 | MM ---
Reason for Exam: Additional evaluation requested from abnormal screening. Last screening mammogram was performed less than 1 month ago. Patient History: Menarche at age 13. First Full-Term at age 30. Late child-bearing (after 30). Hysterectomy at age 48. Patient has history of breast feeding. Patient used Hormonal Contraceptives for 1 year. Risk Values: Denae 5 year model risk: 2.3%. NCI Lifetime model risk: 7.9%. Prior Study Comparison: 03/01/2012 Bilateral Screening Mammogram, [facility]. 12/22/2016 Bilateral Screening Mammogram, [facility]. 05/25/2023 Bilateral MG 3D screening mammo w/cad, [facility]. Tissue Density: Left: The breast tissue is heterogeneously dense. This may lower the sensitivity of mammography. Findings: Analyzed By CAD. The more anterior nodular densities do not persist upon spot compression imaging. The tiny far posterior nodular density was seen on a study dating back to December 22, 2016 and no further workup is necessary. Overall Assessment: Benign, BI-RAD 2 Management: Screening Mammogram of both breasts in 1 year. . Results were given to the patient verbally at the time of exam. Patient should continue monthly self-breast exams. A clinical breast exam by your physician is recommended on an annual basis. This exam should not preclude additional follow-up of suspicious palpable abnormalities. Note on Denae scores and lifetime risk: 1. A Denae score greater than 3% is considered moderate risk. If this is the case, consider specialist referral to assess eligibility for a risk reducing agent. 2. If overall lifetime risk for the development of breast cancer is 20% or higher, the patient may qualify for future screening with alternating mammogram and breast MRI. Electronically signed and approved by: Raymond Jeffrey M.D. Radiologis
== END | disposition home or self-care (01) ==
LOC: RADMAMWWP 13:00
PROVIDERS: ATTEND Internal Medicine
DX: R92.333 Mammographic heterogeneous density, bilateral breasts (principal); Z90.710 Acquired absence of both cervix and uterus; Z92.0 Personal history of contraception
CPT/HCPCS: 77065; G0279; 77061